=== PATIENT | female | born 1985 | race Caucasian/White ===

== ENCOUNTER 2016-06-26 12:22 | Emergency (ER) | payer OTHER ==
[~2016-06-26] VITALS: Ht 157.5 cm; Wt 57.8 kg
[~2016-06-26 12:22] MED LIST: Ambien PO; IBUPROFEN800 MG PO; Motrin PO; PRENATAL TABLE1 EAC3 PO
[2016-06-26 13:27] LABS: CHLORIDE 107 mEq/L (99-109); POTASSIUM 3.7 mEq/L (3.7-5.4); SODIUM 139 mEq/L (136-147)
[2016-06-26 13:29] LABS: GLUCOSE 125 mg/dL (70-99)
[2016-06-26 13:30] LABS: ANION GAP 12 MEQ/L (2-14)
[2016-06-26 13:33] LABS: GFR ESTIMATE (CALCULATED) > 59 mL/min/; UREA NITROGEN (BUN) 17 mg/dL (9-23)
[2016-06-26 13:39] LABS: TROP-I INTERPRETATION NEGATIVE; TROPONIN-I < 0.01 ng/mL (0.0-0.30)
[2016-06-26 13:42] LABS: HEMATOCRIT 39.8 % (36.0-46.0); MCH 28.5 PG (29.0-34.0); MCHC 32.9 G/DL (30.0-36.0); MCV 86.5 FL (83-99); MEAN PLAT.VOLUME 11.4 uM^3 (9.5-12.4); PLATELET COUNT 171 K/uL (156-360); RBC DIS.WIDTH-CV 12.4 % (11.8-14.6); RBC DIS.WIDTH-SD 39.1 % (39-53); WHITE BLOOD COUNT 7.7 K/uL (4.1-10.2)
[2016-06-26 16:25] LABS: TOTAL BILIRUBIN 0.8 mg/dL (0.0-1.0)
[2016-06-26 16:26] LABS: ALKALINE PHOSPHATASE 43 IU/L (3-129)
[2016-06-26 16:28] LABS: DIRECT BILIRUBIN 0.3 mg/dL (0.0-0.3)
[2016-06-26 16:29] LABS: LIPASE 5 U/L (1.0-51.0)
[2016-06-26 16:35] LABS: QUANTITATIVE HCG < 4.0 MIU/ML
[2016-06-26 16:39] LABS: INFLUENZA A VIRAL ANTIGEN NEGATIVE; INFLUENZA B VIRAL ANTIGEN NEGATIVE
[2016-06-26] MEDS ORDERED: ZOFRAN4 MG PO (18:00)
[2016-06-26 18:13] VITALS: BP 97/54
== END 2016-06-26 18:13 | disposition home or self-care (01) ==
LOC: RME 12:22 → EME 12:22 → RME 18:13
PROVIDERS: Physician Assistant
DX: R11.2 Nausea with vomiting, unspecified (principal); R19.7 Diarrhea, unspecified; R05 Cough; R51 Headache; R07.9 Chest pain, unspecified; R00.0 Tachycardia, unspecified
CPT/HCPCS: 71020; 80048; 80076; 83690; 84484; 84702; 85027; 87177; 87493; 87502; 87506; 93005; 99281; 99285; J2405; J7030

== ENCOUNTER 2017-07-12 14:28 | Inpatient (IN) | payer OTHER ==
[~2017-07-12] VITALS: Ht 157.5 cm; Wt 61.4 kg
[~2017-07-12 14:28] MED LIST changes: +ZOFRAN4 MG PO
[2017-07-12 14:48] VITALS: BP 110/64
[2017-07-12] MEDS ORDERED: EXPECTA PRENAT1 EACH PO (15:25)
[2017-07-12] MEDS ORDERED: CALCIUM 500 +1 EACH PO (15:26)
[2017-07-12] MEDS ORDERED: FIBER GUMMIES1 EACH PO (15:27)
[2017-07-12 16:18] LABS: BASOPHIL (%) 0.7 % (0-1); BASOPHIL COUNT 0.1 K/uL (0-0.1); EOSINOPHIL (%) 0.9 % (0-5); EOSINOPHIL COUNT 0.1 K/uL (0-0.3); HEMATOCRIT 33.8 % (36.0-46.0); HEMOGLOBIN 11.3 G/DL (11.9-15.5); IMMATURE GRANULOCYTE (%) 0.3 % (0.0-0.7); LYMPHOCYTE (%) 14.2 % (15-42); LYMPHOCYTE COUNT 1.2 K/uL (1.0-2.8); MCHC 33.4 G/DL (30.0-36.0); MCV 89.7 FL (83-99); MONOCYTE (%) 6.7 % (3-12); MONOCYTE COUNT 0.6 K/uL (0-0.8); NEUTROPHIL (%) 77.2 % (45-76); NEUTROPHIL COUNT 6.6 K/uL (1.8-6.4); PLATELET COUNT 178 K/uL (156-360); RBC DIS.WIDTH-CV 12.5 % (11.8-14.6); RBC DIS.WIDTH-SD 41.1 % (39-53); RED BLOOD COUNT 3.77 M/uL (3.80-5.20); WHITE BLOOD COUNT 8.6 K/uL (4.1-10.2)
[2017-07-12 16:55] VITALS: BP 103/55
[2017-07-12 17:01] LABS: AMPHETAMINE NEGATIVE (500 ng/mL); BARBITURATES NEGATIVE (200 ng/mL); BENZODIAZEPINES NEGATIVE (150 ng/mL); BUPRENORPHINE NEGATIVE (10 ng/mL); COCAINE NEGATIVE (150 ng/mL); METHADONE NEGATIVE (200 ng/mL); METHAMPHETAMINE NEGATIVE (500 ng/mL); OPIATES (MORPHINE) NEGATIVE (100 ng/mL); OXYCODONE NEGATIVE (100 ng/mL); PHENCYCLIDINE NEGATIVE (25 ng/mL); PROPOXYPHENE NEGATIVE (300 ng/mL); THC CANNABINOIDS NEGATIVE (50 ng/mL); TRICYCLIC ANTIDEPRESSANTS NEGATIVE (300 ng/mL)
[2017-07-12 17:32] VITALS: BP 104/54
[2017-07-12 18:01] VITALS: BP 95/53
[2017-07-12 18:31] VITALS: BP 97/51
[2017-07-12 22:58] VITALS: BP 112/64
[2017-07-13] VITALS (24 sets, daily range): BP systolic 93–128; BP diastolic 53–69
[2017-07-14 07:45] LABS: BASOPHIL (%) 0.4 % (0-1); BASOPHIL COUNT 0.1 K/uL (0-0.1); EOSINOPHIL (%) 0.3 % (0-5); HEMATOCRIT 30.3 % (36.0-46.0); IMMATURE GRANULOCYTE (%) 0.4 % (0.0-0.7); LYMPHOCYTE (%) 13.6 % (15-42); LYMPHOCYTE COUNT 1.7 K/uL (1.0-2.8); MCH 29.8 PG (29.0-34.0); MCV 90.2 FL (83-99); MONOCYTE (%) 6.7 % (3-12); MONOCYTE COUNT 0.8 K/uL (0-0.8); NEUTROPHIL (%) 78.6 % (45-76); NEUTROPHIL COUNT 9.8 K/uL (1.8-6.4); PLATELET COUNT 156 K/uL (156-360); RBC DIS.WIDTH-CV 12.6 % (11.8-14.6); RBC DIS.WIDTH-SD 41.7 % (39-53); RED BLOOD COUNT 3.36 M/uL (3.80-5.20); WHITE BLOOD COUNT 12.5 K/uL (4.1-10.2)
[2017-07-14 15:38] VITALS: BP 97/63
[2017-07-14 22:30] VITALS: BP 113/67
== END 2017-07-15 12:20 | disposition home or self-care (01) | DRG 775 ==
LOC: LDRP-OP 14:28 → 2WEST 14:29 → LDRP-OP 08-13 12:57
PROVIDERS: Advanced Practice Midwife
PROC: 3E0P7GC Introduction of Other Therapeutic Substance into Female Reproductive, Via Natural or Artificial Opening (ICD-10-PCS; principal; 2017-07-12)
PROC: 10907ZC Drainage of Amniotic Fluid, Therapeutic from Products of Conception, Via Natural or Artificial Opening (ICD-10-PCS; 2017-07-13)
PROC: 10E0XZZ Delivery of Products of Conception, External Approach (ICD-10-PCS; 2017-07-13)
DX: O41.03X0 Oligohydramnios, third trimester, not applicable or unspecified (principal); O69.1XX0 Labor and delivery complicated by cord around neck, with compression, not applicable or unspecified; Z3A.39 39 weeks gestation of pregnancy; Z37.0 Single live birth; Z88.2 Allergy status to sulfonamides
CPT/HCPCS: 85025; G0378; J7120